=== PATIENT | female | born 1960 | race Caucasian/White ===

== ENCOUNTER 2018-05-06 08:10 | Day surgery (SDC) | payer BC ==
[2018-05-03 12:17] VITALS: BMI 34.0
[~2018-05-06 08:10] MED LIST: LACTATED RINGERS 1,000 ML IV SCH
[2018-05-06 08:28] VITALS: PULSE 64; RESP 18; TEMP 98
[2018-05-06] MEDS ORDERED: LACTATED RINGERS 1,000 ML IV ONE (08:37)
[2018-05-06] MEDS ORDERED: LIDOCAINE 1% 20 ML VIAL (10MG/ML) FOR IV START INTRADERMA ONE (08:38)
[2018-05-06] MEDS ORDERED: LIDOCAINE 1% INJ 10MG/ML (20 ML MDV) ONE (08:53)
[2018-05-06] MEDS ORDERED: PROPOFOL 10 MG/ML 20 ML VIAL IV ONE (08:53)
--- NOTE | 2018-05-06 08:57 | P.GSHP ---
History of Present Illness H&P Date: 05/06/18 Chief Complaint: GERD This a 57-year-old female who presents today for EGD. She's had issues with GERD. Past Medical History Past Medical History: GERD/Reflux, Hypertension Additional Past Medical History / Comment(s): HIATAL HERNIA, C/O SEVERE PAIN IN THROAT ON/OFF. HX FREQ URINATION. History of Any Multi-Drug Resistant Organisms: None Reported Past Surgical History: Section, Hysterectomy, Orthopedic Surgery Additional Past Surgical History / Comment(s): C-S X2. LT THUMB TRIGGER RELEASE ; LT WRIST TENDON RELEASE X2. RT LEG MASTERS CYST EXC X2. Past Anesthesia/Blood Transfusion Reactions: No Reported Reaction Smoking Status: Current every day smoker - Past Family History Mother Family Medical History: No Reported History Medications and Allergies Home Medications Medication Instructions Recorded Confirmed Type Cholecalciferol [Vitamin D3] 5,000 unit PO DAILY 05/03/18 05/03/18 History Lisinopril-Hctz 10-12.5 mg 1 tab PO DAILY 05/03/18 05/03/18 History [Zestoretic 10-12.5] Ranitidine HCl 300 mg PO HS 05/03/18 05/03/18 History Simvastatin [Zocor] 40 mg PO HS 05/03/18 05/03/18 History Tolterodine Tartrate [Detrol LA] 4 mg PO HS 05/03/18 05/03/18 History Allergies Allergy/AdvReac Type Severity Reaction Status Date / Time adhesive tape Allergy Rash/Hives Verified 05/03/18 11:52 Surgical - Exam Vital Signs Temp Pulse Resp BP Pulse Ox 98.0 F 64 18 143/85 98 05/06/18 08:27 05/06/18 08:27 05/06/18 08:27 05/06/18 08:27 05/06/18 08:27 - General well developed, no distress - Eyes PERRL - ENT normal pinna - Neck no masses - Respiratory normal expansion - Cardiovascular Rhythm: regular - Abdomen Abdomen: soft, non tender Assessment and Plan Assessment: GERD. We'll perform EGD.
--- NOTE | 2018-05-06 09:33 | P.OP ---
Date of Procedure: 05/06/18 Preoperative Diagnosis: GERD Postoperative Diagnosis: antral gastritis Small sliding hiatal hernia Esophagitis Procedure(s) Performed: EGD Anesthesia: MAC Surgeon: Miko Qiuroz Pathology: other (antrum, esophagus) Condition: stable Disposition: PACU Description of Procedure: The patient's placed on the endoscopy table in the lateral position. She received IV sedation. The gastroscope placed oropharynx passed in the esophagus and stomach. Scope was then placed through the pylorus. The first and second portion of the duodenum appeared normal. Scope was then brought back the antrum and this was mildly inflamed. A biopsies was performed. Scope was unretroflexed and remainder the stomach appeared normal. There was a small sliding hiatal hernia. There was evidence of a small sliding hiatal hernia The GE junction was at 38 cm. The distal esophagus appeared inflamed. Biopsies of the esophagus performed. The scope was then withdrawn and the proximal esophagus appeared normal. Scope withdrawn for patient.
[2018-05-06 09:35] VITALS: BP 135/69
== END 2018-05-06 09:45 | disposition home or self-care (01) ==
LOC: ORWHC2ENDO 08:10
PROVIDERS: ATTEND Surgery
DX: K21.0 Gastro-esophageal reflux disease with esophagitis (principal); K29.50 Unspecified chronic gastritis without bleeding; K44.9 Diaphragmatic hernia without obstruction or gangrene; I10 Essential (primary) hypertension; Z79.899 Other long term (current) drug therapy; Z91.048 Other nonmedicinal substance allergy status; F17.210 Nicotine dependence, cigarettes, uncomplicated
CPT/HCPCS: 88305; 43239; J2001; J2704

== ENCOUNTER → 2018-05-23 | Outpatient (CLI) | payer BC ==
[2018-05-23 11:51] LABS: Basophils % (A) 1 %; Eosinophils # (A) 0.1 k/uL (0-0.7); Eosinophils % (A) 2 %; HCT 39.3 % (34.0-46.0); Lymphocytes # (A) 2.4 k/uL (1.0-4.8); Lymphocytes % (A) 32 %; MCH 31.4 pg (25.0-35.0); MCHC 33.1 g/dL (31.0-37.0); MCV 94.8 fL (80.0-100.0); Mean Platelet Volume 6.8; Monocytes # (A) 0.5 k/uL (0-1.0); Monocytes % (A) 6 %; Neutrophils # (A) 4.3 k/uL (1.3-7.7); Neutrophils % (A) 58 %; Platelet Count 340 k/uL (150-450); RBC 4.15 m/uL (3.80-5.40); RDW 12.3 % (11.5-15.5); WBC 7.5 k/uL (3.8-10.6)
[2018-05-23 12:05] LABS: Potassium 4.9 mmol/L (3.5-5.1)
== END | disposition home or self-care (01) ==
LOC: LABPAT 10:53
PROVIDERS: ATTEND Surgery
DX: Z01.818 Encounter for other preprocedural examination (principal); Z01.812 Encounter for preprocedural laboratory examination; K21.0 Gastro-esophageal reflux disease with esophagitis
CPT/HCPCS: 36415; 80051; 85025; 86850; 86900; 86901; 93005

== ENCOUNTER 2018-05-30 08:29 | Observation (INO) | payer BC ==
[2018-05-20 08:54] VITALS: BMI 34.0
[~2018-05-30 08:29] MED LIST changes: +DEXAMETHASONE SOD PHOSPHATE 10 MG/ML 1 ML VIAL IV ONE; +HEPARIN SODIUM,PORCINE 5,000 UNIT/ML 1 ML VIAL SQ ONE; +HYDROmorphone 0.5 MG/0.5 ML SYRINGE IVP PRN; +LIDOCAINE 1% 20 ML VIAL (10MG/ML) FOR IV START INTRADERMA PRN; +MIDAZOLAM 2 MG/2 ML VIAL IV PRN; +ONDANSETRON 4 MG/2 ML VIAL IVP ONE; +SCOPOLAMINE 1.5MG/72HR PATCH TRANSDERM ONE; +ceFAZolin IN SWFI 2 GM/20 ML SYRINGE IVP ONE
--- NOTE | 2018-05-30 10:08 | P.GSHP ---
History of Present Illness H&P Date: 05/30/18 Chief Complaint: GERD This a 58-year-old female referred from Dr. Floyd.The patient has had long- standing problems with reflux esophagitis. The patient underwent recent EGD is found have evidence of esophagitis. Patient has been well informed on the procedure of laparoscopic Larisa fundoplication. The patient is aware the risk of the conversion to the open procedure, risk of injury to the stomach, liver and spleen. The patient is also a risk of recurrent GERD and dysphagia symptoms. The patient understands there is a postoperative diet of full liquids for 2 weeks after surgery. Past Medical History Past Medical History: GERD/Reflux, Hypertension Additional Past Medical History / Comment(s): HIATAL HERNIA, C/O SEVERE PAIN IN THROAT ON/OFF. HX FREQ URINATION. History of Any Multi-Drug Resistant Organisms: None Reported Past Surgical History: Section, Hysterectomy, Orthopedic Surgery Additional Past Surgical History / Comment(s): C-S X2. LT THUMB TRIGGER RELEASE ; LT WRIST TENDON RELEASE X2. RT LEG MASTERS CYST EXC X2. EGD, COLONOSCOPY Past Anesthesia/Blood Transfusion Reactions: No Reported Reaction Smoking Status: Current every day smoker - Past Family History Mother Family Medical History: No Reported History Medications and Allergies Home Medications Medication Instructions Recorded Confirmed Type Cholecalciferol [Vitamin D3] 5,000 unit PO DAILY 05/03/18 05/30/18 History Lisinopril-Hctz 10-12.5 mg 1 tab PO DAILY 05/03/18 05/30/18 History [Zestoretic 10-12.5] Ranitidine HCl 300 mg PO HS 05/03/18 05/30/18 History Simvastatin [Zocor] 40 mg PO HS 05/03/18 05/30/18 History Tolterodine Tartrate [Detrol LA] 4 mg PO HS 05/03/18 05/30/18 History Allergies Allergy/AdvReac Type Severity Reaction Status Date / Time adhesive tape Allergy Rash/Hives Verified 05/30/18 08:53 Surgical - Exam Vital Signs Temp Pulse Resp BP Pulse Ox 98.4 F 66 16 114/63 96 05/30/18 08:46 05/30/18 08:46 05/30/18 08:46 05/30/18 08:46 05/30/18 08:46 - General well developed, no distress - Eyes PERRL - ENT normal pinna - Neck no masses - Respiratory normal expansion - Cardiovascular Rhythm: regular - Abdomen Abdomen: soft, non tender Assessment and Plan Assessment: GERD. We'll perform laparoscopic Larisa fundal plication.
[2018-05-30] MEDS ORDERED: ALBUTEROL INHALER 60 PUFF/8 GM INHALER INHALATION ONE (10:29)
[2018-05-30] MEDS ORDERED: MIDAZOLAM 2 MG/2 ML VIAL ONE (10:29)
[2018-05-30] MEDS ORDERED: KETOROLAC 30 MG/ML 1 ML VIAL ONE (10:29)
[2018-05-30] MEDS ORDERED: LIDOCAINE 1% INJ 10MG/ML (20 ML MDV) ONE (10:29)
[2018-05-30] MEDS ORDERED: PROPOFOL 10 MG/ML 20 ML VIAL IV ONE (10:29)
[2018-05-30] MEDS ORDERED: fentaNYL (PF) 50 MCG/ML 2 ML AMP ONE (10:29)
[2018-05-30] MEDS ORDERED: ROCURONIUM BROMIDE 10 MG/ML 10 ML VIAL IV ONE (10:29)
[2018-05-30] MEDS ORDERED: HYDROmorphone (PF) 1 MG/ML ONE (10:29)
[2018-05-30] MEDS ORDERED: BUPIVACAIN-EPI 0.5%-1:200,000 30 ML VIAL SQ ONE (10:58)
[2018-05-30] MEDS ORDERED: ONDANSETRON 4 MG/2 ML VIAL IVP PRN (11:48)
--- NOTE | 2018-05-30 11:48 | P.OP ---
Date of Procedure: 05/30/18 Preoperative Diagnosis: GERD Postoperative Diagnosis: GERD Procedure(s) Performed: Laparoscopic Larisa fundal plication Anesthesia: ANA Surgeon: Miko Quiroz Estimated Blood Loss (ml): 10 Pathology: none sent Condition: stable Disposition: PACU Description of Procedure: HThe patient was placed on the operating table in the supine position. The patient received general anesthesia. And was placed in dorsal lithotomy position. The patient was prepped and draped in the usual sterile fashion. The skin incision sites were anesthetized with 1% local Xylocaine. The skin was incised in the left periumbilical area and then using a blade less 5 mm trocar under direct visualization panel cavity was entered. After adequate insufflation the laparoscope was then placed into the peritoneal cavity. Next a 5 mm trochars placed in the right epigastric position. Another 5 millimeter trocar the right lateral position. Another 5 millimeter trocar in the left lateral position a 5 mm trocar is placed in the left epigastric position. And then the initial 5 mm trocar was exchanged for a 10 mm trocar. The left lateral lobe liver was retracted. The hernia was seen. The crural defect was then dissected using the Harmonic scissors device. A 360 crural dissection was performed the esophagus stomach was reduced back into the peritoneal Cavity. The crural defect was then closed using 2-0 Ethibond suture. Next the fundus of the stomach was mobilized using the [place] scissors device. and then a 58-[place] bougie dilator was placed oropharynx passed into the esophagus and stomach the fundal plication wrap was then performed by grasping the fundus posteriorly and bringing it around the esophagus and stomach fundoplication was then performed using 2-0 Ethibond suture. Care was taken that the fundal location rested over top of the intra-abdominal esophagus. There was no injury seen to the stomach or esophagus. The dilator was then withdrawn. The abdomen was irrigated there is no bleeding seen. The trochars were then withdrawn and then skin incision sites were closed using 3-0 Monocryl suture Steri-Strips are applied. Patient thought procedure well and sent to recovery room in stable condition.
[2018-05-30] MEDS: NICOTINE 21MG/24HR PATCH TRANSDERM SCH (14:43)
[2018-05-30] MEDS: D5-0.45% NACL WITH KCL 20MEQ/L 1,000 ML IV SCH ×2 (14:43→22:25)
[2018-05-30] MEDS: METOCLOPRAMIDE 5 MG/ML 2 ML VIAL IVP SCH ×2 (14:43→19:13)
[2018-05-30] MEDS: HYDROmorphone 1 MG/ML 1 ML SYRINGE IVP PRN ×2 (14:44→20:34)
[2018-05-30 16:17] LABS: Basophils % (A) 0 %; Eosinophils # (A) 0.1 k/uL (0-0.7); Eosinophils % (A) 1 %; HCT 40.1 % (34.0-46.0); HGB 13.2 gm/dL (11.4-16.0); Lymphocytes # (A) 0.8 k/uL (1.0-4.8); Lymphocytes % (A) 5 %; MCH 31.3 pg (25.0-35.0); MCHC 33.1 g/dL (31.0-37.0); MCV 94.6 fL (80.0-100.0); Mean Platelet Volume 6.9; Monocytes # (A) 0.2 k/uL (0-1.0); Monocytes % (A) 1 %; Neutrophils # (A) 15.2 k/uL (1.3-7.7); Neutrophils % (A) 93 %; Platelet Count 287 k/uL (150-450); RBC 4.23 m/uL (3.80-5.40); RDW 12.4 % (11.5-15.5); WBC 16.3 k/uL (3.8-10.6)
[2018-05-30 16:20] LABS: Anion Gap 10 mmol/L; Blood Urea Nitrogen 11 mg/dL (7-17); Calcium 9.1 mg/dL (8.4-10.2); Carbon Dioxide 23 mmol/L (22-30); Chloride 105 mmol/L (98-107); Glucose 182 mg/dL (74-99); Potassium 3.8 mmol/L (3.5-5.1); Sodium 138 mmol/L (137-145)
[2018-05-31] MEDS: HYDROmorphone 1 MG/ML 1 ML SYRINGE IVP PRN ×3 (00:11→09:50)
[2018-05-31] MEDS: METOCLOPRAMIDE 5 MG/ML 2 ML VIAL IVP SCH ×3 (00:11→13:16)
[2018-05-31 08:03] VITALS: RESP 18
[2018-05-31] MEDS: NICOTINE 21MG/24HR PATCH TRANSDERM SCH (08:19)
[2018-05-31] MEDS: D5-0.45% NACL WITH KCL 20MEQ/L 1,000 ML IV SCH (08:19)
--- NOTE | 2018-05-31 09:24 | FL ---
SINGLE CONTRAST ESOPHAGRAM: CLINICAL HISTORY: 58-year-old female status post Larisa fundoplication. TECHNIQUE: Single contrast exam performed with 40 ml Isovue 350 contrast. Total fluoroscopy time: 1 minute 28 seconds. Total images: 15. COMPARISON: 02/03/2018. FINDINGS: The patient swallowed oral contrast without difficulty or delay. Esophageal peristalsis shows mild t o moderate tertiary peristaltic contractions. There is good flow of contrast from the esophagus into the stomach with postsurgical changes of Larisa fundoplication; there is no evidence of contrast extr avasation to suggest leak. No postsurgical free air. IMPRESSION: No evidence of leak or significant obstruction status post Larisa fundoplication.
--- NOTE | 2018-05-31 12:29 | P.DS ---
Providers Date of admission: 05/31/18 00:48 Expected date of discharge: 05/31/18 Attending physician: Miko Quiroz Primary care physician: Stated None Hospital Course: 58-year-old female with long-standing history of esophageal reflux esophagitis symptoms. Recently underwent an EGD found evidence of esophagitis. Patient underwent laparoscopic cholo fundoplication. Postop no no events. Was tolerating bariatric clears diet felt to be appropriate to proceed with a discharge to home Impression discharge diagnoses Symptomatic reflux esophagitis A recent EGD showed evidence of esophagitis Obesity BMI 34 Postop May laparoscopic Cholo fundoplication The above impression and plan of care have been discussed and directed by signing physician. Cammy Horvath nurse practitioner acting as scribe for signing physician. Plan - Discharge Summary Discharge Rx Participant: No New Discharge Prescriptions: New HYDROcodone/APAP 5-325MG [Gilbert 5-325] 1 tab PO Q6HR PRN 3 Days #12 tab PRN Reason: Mild To Moderate Pain Acetaminophen Tab [Tylenol Tab] 650 mg PO Q4H #30 tablet Continue Lisinopril-Hctz 10-12.5 mg [Zestoretic 10-12.5] 1 tab PO DAILY Cholecalciferol [Vitamin D3] 5,000 unit PO DAILY Tolterodine Tartrate [Detrol LA] 4 mg PO HS Ranitidine HCl 300 mg PO HS Simvastatin [Zocor] 40 mg PO HS Discharge Medication List Cholecalciferol [Vitamin D3] 5,000 unit PO DAILY 05/03/18 [History] Lisinopril-Hctz 10-12.5 mg [Zestoretic 10-12.5] 1 tab PO DAILY 05/03/18 [History ] Ranitidine HCl 300 mg PO HS 05/03/18 [History] Simvastatin [Zocor] 40 mg PO HS 05/03/18 [History] Tolterodine Tartrate [Detrol LA] 4 mg PO HS 05/03/18 [History] Acetaminophen Tab [Tylenol Tab] 650 mg PO Q4H #30 tablet 05/31/18 [Rx] HYDROcodone/APAP 5-325MG [Gilbert 5-325] 1 tab PO Q6HR PRN 3 Days #12 tab [Rx] Follow up Appointment(s)/Referral(s): Miko Quiroz MD [STAFF PHYSICIAN] - 1 Week Activity/Diet/Wound Care/Special Instructions: No tub bath for six weeks. Shower daily. No lifting over 10 pounds for the next 6 weeks. Maintain bariatric clear liquid diet until seen in follow-up office visit May use ice packs to surgical site. No driving while taking narcotic for pain. Discharge Disposition: HOME SELF-CARE
[2018-05-31 12:49] VITALS: BP 152/75; PULSE 71; TEMP 98.1
== END 2018-05-31 13:17 | disposition home or self-care (01) ==
LOC: ORWHC2ENDO 08:29 → EDSTATUS 10:30 → 6PED 11:37 → ORWHC2ENDO 05-31 00:48
PROVIDERS: ADMIT Surgery; ATTEND Surgery
DX: K21.0 Gastro-esophageal reflux disease with esophagitis (principal); K44.9 Diaphragmatic hernia without obstruction or gangrene; I10 Essential (primary) hypertension; E78.5 Hyperlipidemia, unspecified; Z68.34 Body mass index [BMI] 34.0-34.9, adult; E66.9 Obesity, unspecified; F17.200 Nicotine dependence, unspecified, uncomplicated; Z90.710 Acquired absence of both cervix and uterus; Z91.048 Other nonmedicinal substance allergy status; Z79.899 Other long term (current) drug therapy; Z87.448 Personal history of other diseases of urinary system
CPT/HCPCS: 80048; 85025; 74210; 43280; G0378; S4990 ×2; J1644; J1100; J2765 ×2; J2405; J1170 ×3; J0690; Q9967; 86850; 86900; 86901

== ENCOUNTER → 2025-04-23 | Outpatient (CLI) | payer OTHER ==
[2025-04-26 09:56] LABS: Cotinine <2.0 ng/mL (<2.0); Nicotine <2.0 ng/mL (<2.0)
== END | disposition home or self-care (01) ==
LOC: LABWHC1 09:30
PROVIDERS: ATTEND Neurological Surgery
DX: Z01.812 Encounter for preprocedural laboratory examination (principal)
CPT/HCPCS: 36415; 80323